=== PATIENT | female | born 1980 | race Caucasian/White ===

== ENCOUNTER 2016-09-18 10:17 | Emergency (ER) | payer OTHER ==
[2016-09-18 12:38] LABS: HEMOGLOBIN 12.7 gm/dl (12.3-15.3); RED BLOOD COUNT 3.92 M/UL (4.00-5.10); WHITE BLOOD COUNT 12.1 K/UL (4.5-11.0)
[2016-09-18 12:57] LABS: BUN/CREATININE RATIO 5 (0-10)
== END 2016-09-18 16:10 | disposition home or self-care (01) ==
LOC: ER1 10:17
PROVIDERS: Specialist/Technologist Athletic Trainer
DX: E87.6 Hypokalemia (principal); R91.1 Solitary pulmonary nodule; F17.200 Nicotine dependence, unspecified, uncomplicated
CPT/HCPCS: 36415; 71250; 73030; 80053; 82550; 82553; 83874; 84484; 85025; 93005; 96372; 99284; J1100; J1885

== ENCOUNTER → 2020-12-05 | Outpatient (CLI) | payer OTHER | LOC: HEART 5 11:54 | DX: J45.909 Unspecified asthma, uncomplicated (principal); D64.9 Anemia, unspecified; F41.9 Anxiety disorder, unspecified; J44.9 Chronic obstructive pulmonary disease, unspecified; R94.2 Abnormal results of pulmonary function studies; F17.210 Nicotine dependence, cigarettes, uncomplicated | CPT/HCPCS: 94060; 94729 ==

== ENCOUNTER → 2020-12-10 | Outpatient (CLI) | payer OTHER | LOC: KOH-I 10:57 | DX: J84.112 Idiopathic pulmonary fibrosis (principal); R91.8 Other nonspecific abnormal finding of lung field | CPT/HCPCS: 71250 ==